=== PATIENT | female | born 1990 | race Caucasian/White ===

== ENCOUNTER 2025-02-05 08:00 | Emergency (ER) | payer OTHER, SELFPAY ==
[2025-02-05 08:02] VITALS: BP 127/95
[2025-02-05 08:54] VITALS: BMI 22.1
[2025-02-05 09:00] VITALS: BP 127/78
--- NOTE | 2025-02-05 09:00 | EDRN ---
Received patient on stretcher. Patient stated that she has been feeling SOB especially when she's in an upright position and difficulty eating for the past year. Patient stated that she has lost 60 lbs over the past year because of it. Stated that
she has seen multiple doctors and keeps being told that everything is normal. Patient is requesting for a referral for a vascular doctor because she believes her issues are vascular causes. Patient stated 'I can't go home if I can't eat.'
--- NOTE | 2025-02-05 09:33 | ED.GENMED ---
History of Present Illness
General
Chief Complaint: Breathing Problem
Source: patient
Exam Limitations: none
Time Seen by Provider: 02/05/25 08:59
Nursing documentation reviewed up to this point in time: agreed with
History of Present Illness
History of Present Illness:
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
specific answers. Mostly treated with psychiatric medication. She does not believe this is from anxiety. Denies specific chest pain or shortness of breath during my examination but claims that in general this has been worsening over time.
Review of Systems
Review of Systems
Allergies reviewed?: Yes
All Other Systems: ROS reviewed and negative except as documented in HPI and ROS
Phy Exam
Physical Exam
Physical Exam:
GENERAL: Alert , in no apparent distress
EYE: pupils equal and reactive
NECK: Supple, no significant adenopathy.
ENT: o/p clr, mmm.
CARDIAC: Regular rate and rhythm .
LUNGS: Clear breath sounds bilaterally, no acute respiratory distress, no wheezes/rales/rhonchi
ABDOMEN: Soft, without focal tenderness, no r/g, no cvat
NEUROLOGICAL: Alert and oriented, no focal neuro deficits
SKIN: Warm and dry, skin intact.
MUSCULOSKELETAL: No edema, well perfused.
PSYCH: Normal and appropriate interaction.
Course
Orders/Labs/Results
Orders:
Orders
02/05/25 08:06
EKG [Electrocardiogram (*1)] Urgent
Reason for Study: Tachycardia
02/05/25 08:07
EKG- Treatment ONCE
02/05/25 09:17
Cardiac Monitoring- Treatment ONCE
CR Chest - 2 Views Urgent
Comment:
Reason For Exam: cp
02/05/25 09:48
Complete Blood Count/With Diff Urgent
Comprehensive Metabolic Panel Urgent
D-Dimer Urgent
Lipase Urgent
Magnesium Urgent
NT-proBNP Urgent
TSH Urgent
Troponin I Urgent
Abnormal Lab Results
02/05/25
09:48
Glucose 110 H mg/dl
(70-99)
Total Bilirubin 2.6 H mg/dl
(0.2-1.3)
02/05/25 09:48
02/05/25 09:48
Vital Signs
Initial and Last Documented VS:
Initial Vital Signs
Temp Pulse Resp BP Pulse Ox
98.7 F 128 18 127/95 100
02/05/25 08:02 02/05/25 08:02 02/05/25 08:02 02/05/25 08:02 02/05/25 08:02
Last Documented Vital Signs
Temp Pulse Resp BP Pulse Ox
98.7 F 95 24 103/68 100
02/05/25 08:02 02/05/25 11:15 02/05/25 11:15 02/05/25 11:00 02/05/25 10:00
MDM/Problems Addressed
MDM/Problems Addressed:
34-year-old female presenting to the emergency department today with concerns of multiple symptoms that have been ongoing for at least a year. Has seen multiple specialist without any specific answers. She was told she potentially has POTS and
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 Here she is initially tachycardic but seem to improve during my assessment into the 90s but then will fluctuate occasionally into the 120s in sinus rhythm. Heart rate in the 90s for
majority of stay labs unremarkable other than elevated bili but no upper abdominal discomfort at this time she was advised to close a patient follow-up otherwise return precautions given.
*Critical Care Note
Total Time (30-74mins, 75-104mins- exclusive of procedures): Not Applicable
ED Attending Note
-
Portions of this chart may have been created with voice recognition software.� Occasional wrong word or��sound alike� substitutions may have occurred due to the inherent limitations of voice recognition software.
Discharge Plan
Departure
Patient Disposition: Home (Routine Discharge)
Date of Disposition: 02/05/25
Time of Disposition: 12:01
Patient with high blood pressure during this ER visit?: No
Condition: Good
Covid-19: Not Applicable
Discharge Problem:
Shortness of breath
Instructions: Shortness of Breath (Dyspnea) (DC)
Referrals:
[facility] [Provider Group] - Follow up in 2-3 days
Dario Carvajal MD [Active] - Follow up in 10 days
Kota Costa DO [Family Provider] -
Activity Restrictions/Additional Instructions:
You came to the emergency department with concerns of ongoing ailments. Here you did have a reassuring workup as far as life threats. It is important to follow-up closely as an outpatient with the primary care doctor for further assessment and
monitoring of this. Return for any worsening, new or concerning symptoms.
Interventions
Interventions:
*Risk Screen - Suicide Last Done: 02/05/25 08:06
*General Assessment Last Done: 02/05/25 08:06
*Neglect/Abuse Screening Last Done: 02/05/25 08:06
*ED- Fall Risk Assessment Last Done: 02/05/25 08:54
*ED COVID-19 Vaccine History Last Done: 02/05/25 08:06
ED- Cardiac Assessment Last Done: 02/05/25 08:54
ED- Pulmonary Assessment Last Done: 02/05/25 08:54
Discharge Date and Time
Print Language: MALDIVIAN
[2025-02-05 10:00] VITALS: BP 105/73
[2025-02-05 10:00] LABS: % Immature Granulocytes 0.2 % (0-0.5); % Lymphocytes 33.7 % (20.5-51.1); % Monocytes 6.6 % (1.7-9.3); % Neutrophils 54.5 % (42.2-75.2); Absolute Basophils 0.1 10^3/uL (0-0.2); Absolute Eosinophils 0.2 10^3/uL (0-0.7); Absolute Lymphocytes 1.7 10^3/uL (1.2-3.4); Absolute Monocytes 0.3 10^3/uL (0.1-0.6); Absolute Neutrophils 2.7 10^3/uL (1.4-6.5); Hemoglobin 13.8 g/dL (12.0-16.0); Mean Corp Hgb Conc. 35.4 g/dL (33.0-37.0); Mean Corpuscular Hgb 30.1 pg (27.0-31.0); Mean Corpuscular Volume 85.2 fL (81.0-99.0); Mean Platelet Volume 9.7 fL (7.4-10.4); Nucleated Red Blood Cells % 0 %; Platelet Count 367 10^3/uL (130-400); Red Blood Cell Count 4.58 10^6/uL (4.20-5.40); Red Cell Dist. Width 11.9 % (11.5-14.5)
[2025-02-05 10:10] LABS: ALT (SGPT) 30 U/L (0-35); AST (SGOT) 34 U/L (14-36); Albumin 4.5 g/dl (3.5-5.0); Alkaline Phosphatase 69 U/L (38-126); Blood Urea Nitrogen 15 mg/dl (7-17); Calcium 9.9 mg/dl (8.4-10.2); Carbon Dioxide 26 mmol/L (22-30); Chloride 103 mmol/L (98-107); Estimated Creatinine Clearance 76 ml/min; Glucose 110 mg/dl (70-99); Lipase 178 U/L (23-300); Magnesium 1.9 mg/dl (1.6-2.3); Potassium 4.5 mmol/L (3.5-5.1); Sodium 137 mmol/L (135-145); Total Bilirubin 2.6 mg/dl (0.2-1.3); Total Protein 6.8 g/dl (6.3-8.2); eGFR > 60.00
[2025-02-05 10:21] VITALS: BP 122/82
[2025-02-05 10:21] LABS: NT-proBNP < 20.0 pg/ml; Troponin I < 0.012 ng/ml
[2025-02-05 10:29] LABS: D-Dimer < 0.27 ug/mlFEU (0.00-0.50)
[2025-02-05 10:42] VITALS: BP 102/78
[2025-02-05 10:46] LABS: TSH 0.66 uIU/ml (0.47-4.68)
[2025-02-05 11:00] VITALS: BP 103/68
--- NOTE | 2025-02-05 12:50 | EDRN ---
Reviewed discharge instructions with patient. Verbalized understanding. Ambulated with steady gait to the lobby.
== END 2025-02-05 12:55 | disposition home or self-care (01) ==
LOC: EMR 08:00
PROVIDERS: Physician Assistant; EMERGENCY PHYSICIAN Student in an Organized Health Care Education/Training Program; FAMILY PHYSICIAN Family Medicine
DX: R06.02 Shortness of breath (principal); F41.9 Anxiety disorder, unspecified
CPT/HCPCS: 99283; 71046; 80053; 83690; 83735; 83880; 84443; 84484; 85025; 85379; 93005